=== PATIENT | male | born 1950 | race Caucasian/White ===

== ENCOUNTER → 2016-09-18 | Day surgery (SDC) | payer OTHER ==
[~2016-09-18] MED LIST: Buffered Lidocaine 1% SYR 3ML* 3 ML/SYR SYRINGE INTRADERM ONE; Buffered Lidocaine 1% SYR 3ML* 3 ML/SYR SYRINGE ONE; Bupivacaine 0.5% W/EPI SDV* 30 ML VIAL ONE; Dexamethasone IV* 4 MG/ML 1 ML (4 MG) ONE; DiMENhydriNATE IV* 50 MG/ML VIAL IV PUSH PRN; Famotidine IV* 10 MG/ML 2 ML (20 mg) IV ONE; Famotidine IV* 10 MG/ML 2 ML (20 mg) ONE; HYDROmorphone INJ* 1 MG/ML CARPUJECT SYRINGE IV PRN; HYDROmorphone INJ* 1 MG/ML CARPUJECT SYRINGE ONE; Ketorolac INJ* 30 MG/ML 1 ML VIAL ONE; Lidocaine 2% MPF* 2 ML VIAL ONE; Midazolam* 1 MG/ML 5 ML VIAL (5 MG) ONE; Ondansetron INJ* 2 MG/ML VIAL ONE; Propofol* 10 MG/ML 20 ML BTL IV PUSH ONE; Rocuronium* 10 MG/ML VIAL ONE; Succinylcholine* 20 MG/ML 10 ML VIAL ONE; ceFAZolin 2 GM PREMIX (*) 2 GM/50 ML BAG IVPB ONE; fentaNYL* 50 MCG/ML 2 ML VIAL (100 MCG VIAL) ONE; oxyCODONE/Acetamin 5/325 MG* TAB PO PRN
--- NOTE | 2016-09-18 19:58 | PN ---
Progress Note - Progress Note Note: Brief Operative Note: Preop Dx: bilateral inguinal hernias Postop Dx: same Procedure: Laparoscopic Repair bilateral inguinal hernias w/ mesh Anesthesia: GET Surgeon: Jose Asst: ABNER Dutton EBL: none Fluids: 1700 ml Findings: dictated Drains: none
[2016-09-18 21:03] VITALS: BP 127/80
--- NOTE | 2016-09-19 02:16 | OP ---
DATE OF OPERATION: 09/18/16 [facility] DATE OF : 54 SURGEON: Vargas Garcia MD OPERATIONS SUPERVISOR 2ND SHIFT: ABNER Francisco ANESTHESIOLOGIST: Juliette Mcrae MD ANESTHESIA: General endotracheal. PRE-OP DIAGNOSIS: Right inguinal hernia and left groin pain. POST-OP DIAGNOSIS: Recurrent bilateral inguinal hernias. OPERATIVE PROCEDURE: Laparoscopic bilateral inguinal hernia repairs with mesh. ESTIMATED BLOOD LOSS: Minimal. IV FLUIDS: Crystalloid. SPECIMEN: None. DRAINS: None. COMPLICATIONS: None. COUNTS: Instrument, needle, and sponge counts were correct. OPERATIVE FINDINGS: Bilateral recurrent direct inguinal hernias. DESCRIPTION OF PROCEDURE: The patient was brought to the operating room and placed on the table supine. Sequential compression devices were placed on both lower extremities. General anesthesia was administered. Michaels catheter was placed. The patient received intravenous antibiotics. He was prepped and draped in the usual sterile fashion. Time-out was performed. Local anesthetic was infiltrated in the skin and soft tissue prior to making each incision. A curvilinear infraumbilical incision in the anterior rectus fascia was identified. The fascia was incised transversely to the left of the midline and the underlying muscles retracted laterally and then a preperitoneal balloon dissection was positioned down to the level of the pubic symphysis and this was insufflated under direct visualization. The balloon dissector was then removed and replaced with a 12-mm blunt port and carbon dioxide was insufflated to a pressure of 12 mmHg into the preperitoneal space. Two 5-mm trocars were then placed in the lower midline. The dissection proceeded first toward the right side. The pubic symphysis was identified and Macho's ligament was identified on the right. There was a direct inguinal hernia defect noted, which contained what appeared to be fat. This was reduced and the dissection proceeded laterally, maintaining the inferior epigastric vessels anteriorly and dissecting out the cord structures, which were preserved and identifying the peritoneal reflection, which was dissected free from the cord structures. This was inadvertently entered and it was closed by twisting it upon itself and then clipping it with a 5-mm clip preparation operator. The dissection then proceeded out laterally to the anterior-superior iliac spine. The procedure was repeated on the right side and there appeared to be a smaller area of weakness in the direct space. The patient did not appear to have any evidence of an indirect inguinal hernia defect and again the dissection proceeded laterally to the anterior- superior iliac spine. It was decided to perform the repair with a Bard 3D Max mesh using a medium sized patch on each side. The mesh was placed first on the left side and it was positioned to cover the direct , indirect and femoral spaces with the CapSure tacker used to secure the mesh to Macho's ligament. The mesh was positioned on the right side in a similar fashion and secured with the CapSure tacker as well with overlap of the mesh in the midline, which was secured with another firing of the CapSure tacker. The preperitoneal space was allowed to desufflate under direct visualization assuring that the mesh maintained its proper position. Then the ports were removed and the infraumbilical wound was closed with 0 Polysorb in figure-of- eight fashion to approximate the fascia. The skin incisions were closed with 4- 0 Monocryl in subcuticular fashion. Steri-Strips were applied. The patient tolerated the procedure well, was extubated and transferred to recovery room in stable condition. CC: Rachele Chavez MD* [id number]/[facility] #: [id number] MTDNasim
== END | disposition home or self-care (01) ==
LOC: OR 13:14
PROVIDERS: ATTEND Surgery
DX: K40.20 Bilateral inguinal hernia, without obstruction or gangrene, not specified as recurrent (principal); I10 Essential (primary) hypertension; Z87.891 Personal history of nicotine dependence
CPT/HCPCS: C1776; C1781; J0330; J0690; J1100; J1170; J1885; J2250; J2405; J2704; J3010

== ENCOUNTER 2017-04-11 17:50 | Emergency (ER) | payer OTHER ==
[2017-04-11 17:55] VITALS: BP 139/82
[2017-04-11] MEDS ORDERED: Lidocaine/Epi 1.5%-1:200,000* 30 ML VIAL INJ ONE (18:39)
--- NOTE | 2017-04-11 18:49 | RAD ---
INDICATION: Left forearm injury. TECHNIQUE: 2 views of the left forearm were obtained. FINDINGS: There appears to be a large soft tissue defect present along the volar aspect of the forearm. No fracture or radiopaque foreign body is seen. IMPRESSION: SOFT TISSUE INJURY, NO EVIDENCE FOR FRACTURE.
--- NOTE | 2017-04-11 19:53 | ED ---
Laceration/Wound HPI - HPI Summary HPI Summary: 66M presents with left forearm laceration from a blade used to cut stone. He is not sure if is foreign body. has full ROM of hand. is right handed. tetanus was 3 years ago. bleeding is controlled at this time. no numbness or tingling. - History of Current Complaint Stated Complaint: LT ARM LAC Time Seen by Provider: 04/11/17 18:04 Pain Intensity: 6 - Allergy/Home Medications Allergies/Adverse Reactions: Allergies Allergy/AdvReac Type Severity Reaction Status Date / Time No Known Allergies Allergy Verified 04/11/17 17:53 PMH/Surg Hx/FS Hx/Imm Hx Endocrine/Hematology History: Denies: Hx Diabetes, Hx Thyroid Disease Cardiovascular History: Reports: Hx Hypertension - bp meds Respiratory History: Denies: Hx Asthma, Hx Chronic Obstructive Pulmonary Disease (COPD) GI History: Reports: Other GI Disorders - inguinal hernias Denies: Hx Ulcer Sensory History: Reports: Hx Contacts or Glasses - both - will wear glasses DOS Denies: Hx Hearing Aid Opthamlomology History: Reports: Hx Contacts or Glasses - both - will wear glasses DOS Neurological History: Reports: Hx Migraine - none in a while - Surgical History Surgery Procedure, Year, and Place: hernia repair 1987. septoplasty [id number]? Hx Anesthesia Reactions: Yes - a long time waking up after surgery Infectious Disease History: No Infectious Disease History: Denies: Hx Hepatitis, Hx Human Immunodeficiency Virus (HIV), Traveled Outside the [place] in Last 30 Days - Family History Known Family History: Positive: Cardiac Disease - Social History Alcohol Use: Occasionally Substance Use Type: Reports: None Smoking Status (MU): Former Smoker Review of Systems Negative: Fever Negative: Chest Pain Negative: Shortness Of Breath Positive: Other - laceration left forearm All Other Systems Reviewed And Are Negative: Yes Physical Exam Triage Information Reviewed: Yes Vital Signs On Initial Exam: Initial Vitals Temp Pulse Resp BP Pulse Ox 98.1 F 69 16 139/82 98 04/11/17 17:53 04/11/17 17:53 04/11/17 17:53 04/11/17 17:53 04/11/17 17:53 Vital Signs Reviewed: Yes Appearance: Positive: Well-Appearing Skin: Positive: Warm, Dry, Other - 10cm by 5cm by 1/2cm deep on left forearm Head/Face: Positive: Normal Head/Face Inspection Eyes: Positive: Normal, Conjunctiva Clear Respiratory/Lung Sounds: Positive: Clear to Auscultation, Breath Sounds Present Cardiovascular: Positive: Normal, RRR Musculoskeletal: Positive: Strength/ROM Intact - left wrist and fingers, Other - good pulses, capillary refill<2 secs Procedures - Laceration/Wound Repair 1 Location: Other - left arm laceration Description: Linear Anesthesia: Local, 1.0% Length, Depth and Shape: 10cm by 5cm wide and 1/2 cm deep Betadine Prep?: Yes Irrigated w/ Saline (ccs): 1,000 Closure: Multilayer Suture Type: Prolene - 4-0, Chromic - 4-0 Number of Sutures: 11 Layer Closure?: Yes - one deep, 10 vertical mattress Diagnostics - Vital Signs Vital Signs Temp Pulse Resp BP Pulse Ox 04/11/17 18:07 98.1 F 61 16 139/82 100 04/11/17 17:53 98.1 F 69 16 139/82 98 - Laboratory Lab Statement: Any lab studies that have been ordered have been reviewed, and results considered in the medical decision making process. - Radiology forearm Xray Interpretation: No Acute Changes - IMPRESSION: SOFT TISSUE INJURY, NO EVIDENCE FOR FRACTURE. Radiology Interpretation Completed By: Radiologist Laceration Repair Course/Dx - Course Course Of Treatment: 66M presents with left forearm laceration from a blade used to cut stone. He is not sure if is foreign body. has full ROM of hand. is right handed. tetanus was 3 years ago. bleeding is controlled at this time. no numbness or tingling. on exam does not appear to be any tendon involvement. cleaned and placed 10 vertical mattresses sututres and 1 deep suture. told to limit ROM of hand to allow it to heal. gave referral for ortho if believe tendon involvement. patient understands and agrees with plan. - Differential Dx Differental Diagnoses: Abrasion, Avulsion, Laceration - Clinical Impression Provider Diagnoses: Laceration of left forearm Discharge - Discharge Plan Condition: Good Disposition: HOME Patient Education Materials: Care For Your Stitches (ED) Referrals: Rachele Chavez MD [Primary Care Provider] - Antoine Liang MD [Medical Doctor] - Additional Instructions: Take Tylenol or ibuprofen for pain Keep area clean and dry Avoid a lot of wrist flexion for next 5 days Return to ED or primary in 10-14 days to have sutures removed Follow up with hand surgery if suspect any tendon damage Return to ED if develop signs of infection such as fever, spreading redness, or pus.
== END 2017-04-11 20:28 | disposition home or self-care (01) ==
LOC: ED 17:50
DX: S51.812A Laceration without foreign body of left forearm, initial encounter (principal); W45.8XXA Other foreign body or object entering through skin, initial encounter; Y93.9 Activity, unspecified; Y92.9 Unspecified place or not applicable; Z87.891 Personal history of nicotine dependence
CPT/HCPCS: 96374; 99281

== ENCOUNTER 2017-04-22 09:03 | Emergency (ER) | payer OTHER ==
--- NOTE | 2017-04-22 09:31 | ED ---
Skin Complaint - HPI Summary HPI Summary: Patient presents to the ED with request for suture removal. He was here 9 days ago after sustaining a 12cm laceration to the left forearm from a table saw. Xrays were negative for fx. Mattress sutures placed with good effect. He denies any numbness, tingling, temperature or color changes to the area. Area has healed well with no signs of infection, drainage, warmth or red streaking. He is able to flex and extend at the wrist and the elbow with no pain or limitations. Otherwise healthy. - History of Current Complaint Chief Complaint: EDLacSutureRecheck Time Seen by Provider: 04/22/17 09:10 Stated Complaint: STITCHES REMOVAL Hx Obtained From: Patient Onset/Duration: Started Days Ago Skin Exposure Onset/Duration: Days Ago Timing: Constant Onset Severity: Mild Current Severity: Mild Pain Intensity: 0 Pain Scale Used: 0-10 Numeric Character: Pain, Redness, Painful Aggravating Symptom(s): Nothing Alleviating Symptom(s): Nothing Related History: Trauma - Allergy/Home Medications Allergies/Adverse Reactions: Allergies Allergy/AdvReac Type Severity Reaction Status Date / Time No Known Allergies Allergy Verified 04/11/17 17:53 PMH/Surg Hx/FS Hx/Imm Hx Previously Healthy: Yes Endocrine/Hematology History: Denies: Hx Diabetes, Hx Thyroid Disease Cardiovascular History: Reports: Hx Hypertension - bp meds Respiratory History: Denies: Hx Asthma, Hx Chronic Obstructive Pulmonary Disease (COPD) GI History: Reports: Other GI Disorders - inguinal hernias Denies: Hx Ulcer Sensory History: Reports: Hx Contacts or Glasses - both - will wear glasses DOS Denies: Hx Hearing Aid Opthamlomology History: Reports: Hx Contacts or Glasses - both - will wear glasses DOS Neurological History: Reports: Hx Migraine - none in a while - Surgical History Surgery Procedure, Year, and Place: hernia repair 1987. septoplasty [id number]? Hx Anesthesia Reactions: Yes - a long time waking up after surgery Infectious Disease History: No Infectious Disease History: Denies: Hx Hepatitis, Hx Human Immunodeficiency Virus (HIV), Traveled Outside the [place] in Last 30 Days - Family History Known Family History: Positive: Cardiac Disease - Social History Occupation: Employed Full-time Lives: With Family Alcohol Use: Occasionally Hx Substance Use: No Substance Use Type: Reports: None Hx Tobacco Use: Yes Smoking Status (MU): Former Smoker Review of Systems Constitutional: Negative Eyes: Negative Cardiovascular: Negative Respiratory: Negative Positive: no symptoms reported, see HPI Musculoskeletal: Negative Positive: Other - healing wound Neurological: Negative Psychological: Normal All Other Systems Reviewed And Are Negative: Yes Physical Exam Triage Information Reviewed: Yes Vital Signs On Initial Exam: Initial Vitals Temp Pulse Resp BP Pulse Ox 98.2 F 63 18 135/85 100 04/22/17 09:07 04/22/17 09:07 04/22/17 09:07 04/22/17 09:07 04/22/17 09:07 Completion Of Physical Exam Limited Due To: Dementia Appearance: Positive: Well-Appearing, Well-Nourished Skin: Positive: Warm, Skin Color Reflects Adequate Perfusion, Other - healing wound Head/Face: Positive: Normal Head/Face Inspection Eyes: Positive: EOMI, GABINO, Conjunctiva Clear Neck: Positive: Supple, No Lymphadenopathy Respiratory/Lung Sounds: Positive: Clear to Auscultation, Breath Sounds Present Cardiovascular: Positive: Normal, RRR, Pulses are Symmetrical in both Upper and Lower Extremities Musculoskeletal: Positive: Strength/ROM Intact Neurological: Positive: Speech Normal Psychiatric: Positive: Normal AVPU Assessment: Alert Diagnostics - Vital Signs Vital Signs Temp Pulse Resp BP Pulse Ox 04/22/17 09:15 97.8 F 61 16 135/85 100 04/22/17 09:07 98.2 F 63 18 135/85 100 - Laboratory Lab Statement: Any lab studies that have been ordered have been reviewed, and results considered in the medical decision making process. Course/Dx - Course Course Of Treatment: Patient presents to the ED with request for suture removal. He was here 9 days ago after sustaining a 12cm laceration to the left forearm from a table saw. Xrays were negative for fx. Mattress sutures placed with good effect. He denies any numbness, tingling, temperature or color changes to the area. Area has healed well with no signs of infection, drainage , warmth or red streaking. He is able to flex and extend at the wrist and the elbow with no pain or limitations. Otherwise healthy. Sutures were removed and counted and all were intact. Patient tolerated well and care instructions given. He is OK for discharge. - Differential Diagnoses - Skin Complaint Differential Diagnoses: Other - loose sutures, suture removal, healing wound - Diagnoses Provider Diagnoses: Visit for suture removal Discharge - Discharge Plan Condition: Stable Disposition: HOME Patient Education Materials: Stitches Removal (ED) Referrals: Rachele Chavez MD [Primary Care Provider] -
[2017-04-22 09:33] VITALS: BP 135/81
== END 2017-04-22 09:33 | disposition home or self-care (01) ==
LOC: ED 09:03
DX: Z48.02 Encounter for removal of sutures (principal); I10 Essential (primary) hypertension; Z87.891 Personal history of nicotine dependence; F03.90 Unspecified dementia, unspecified severity, without behavioral disturbance, psychotic disturbance, mood disturbance, and anxiety
CPT/HCPCS: 99282